=== PATIENT | female | born 1935 | race Caucasian/White ===

== ENCOUNTER → 2016-09-13 | Outpatient (CLI) | payer MEDICARE, OTHER ==
[~2016-09-13] MED LIST: ASPIRIN E.C. 8181 MG PO; CALCIUM600 MG PO; CEPHALEXIN500 M1 PO; CINNAMON; CRANBERRY1000 MG PO; FISH OIL1 IU PO; MIRTAZAPINE7.5 MG PO; MULTIPLE VITAMI1 CAP PO; MVI; NAMENDA5 MG PO; NEURONTIN100 MG/CAP PO; PERCOCET 5/321 UDTAB PO; PRILOSEC 20MG20 MG PO; TEGRETOL 1100 MG/TAB PO; TRILEPTAL 300M300 MG PO; TRILEPTAL600 MG PO; VITAMIN B121000 MC2 SL; WELLBUTRIN PO; WELLBUTRIN XL300 M1 PO; ZOCOR; ZOCOR 40MG40 MG PO
== END ==
LOC: MC.RAD 10:18
DX: Z12.31 Encounter for screening mammogram for malignant neoplasm of breast (principal); Z80.3 Family history of malignant neoplasm of breast

== ENCOUNTER → 2017-09-19 | Outpatient (CLI) | payer MEDICARE, OTHER | LOC: MC.RAD 09:55 | DX: Z12.31 Encounter for screening mammogram for malignant neoplasm of breast (principal) ==

== ENCOUNTER → 2018-09-23 | Outpatient (CLI) | payer MEDICARE, OTHER | LOC: MC.RAD 17:00 | DX: Z12.31 Encounter for screening mammogram for malignant neoplasm of breast (principal) ==

== ENCOUNTER → 2020-05-26 | Outpatient (CLI) | payer MEDICARE, OTHER | LOC: MC.RAD 14:45 | DX: Z12.31 Encounter for screening mammogram for malignant neoplasm of breast (principal) ==

== ENCOUNTER → 2021-03-01 | Outpatient (CLI) | payer MEDICARE, OTHER | LOC: COL.RAD 12:02 | DX: G31.9 Degenerative disease of nervous system, unspecified (principal); I67.82 Cerebral ischemia; G30.9 Alzheimer's disease, unspecified | CPT/HCPCS: A9585 ==

== ENCOUNTER 2023-08-31 18:42 | Inpatient (IN) | payer MEDICARE, OTHER ==
[~2023-08-31] VITALS: Ht 157.5 cm; Wt 58.6 kg
[2023-08-31] MEDS ORDERED: fentaNYL 50 MCG/ML 2 ML VIAL IV ONE (20:00)
[2023-08-31 20:29] LABS: COLLECTION METHOD CATHETER
[2023-08-31] MEDS ORDERED: D5 1/2 NS 1,000 ML IV SCH (20:30)
[2023-08-31] MEDS ORDERED: Naloxone 0.4 MG/ML VIAL IV PRN (20:30)
[2023-08-31] MEDS ORDERED: oxyCODONE 5 MG TAB PO PRN (20:30)
[2023-08-31] MEDS ORDERED: Morphine 4 MG/ML VIAL IV PRN (20:30)
[2023-08-31 20:35] LABS: PH 6.5 (5.0-8.5); URINE APPEARANCE CLEAR (CLEAR/HAZY); URINE BLOOD NEGATIVE (NEGATIVE); URINE COLOR YELLOW (YELLOW); URINE GLUCOSE NEGATIVE (NEGATIVE); URINE KETONE NEGATIVE (NEGATIVE); URINE NITRATE NEGATIVE (NEGATIVE); URINE PROTEIN(semi-quant) NEGATIVE (NEGATIVE); URINE UROBILINOGEN 0.2 E.U/dL (0.2-1.0)
[2023-08-31 20:38] LABS: INR 1.1 (0.8-3.0); PROTHROMBIN TIME 12.3 SECONDS (9.7-12.8)
[2023-08-31 20:51] LABS: BASO % 0.3 % (0.0-2.0); EOS # 0.2 K/mm3 (0.0-0.7); EOS % 1.9 % (0.0-4.0); GRAN # 6.8 K/mm3 (1.4-6.5); GRAN % 77.6 % (42.2-75.2); HEMATOCRIT 37.5 % (37.0-47.0); HEMOGLOBIN 12.5 g/dl (12.5-16.0); LYMPH # 1.3 K/mm3 (1.2-3.4); LYMPH % 14.8 % (20.0-51.0); MEAN CELL VOLUME 90 fl (80.0-100.0); MEAN CORPUSCULAR HEMOGLOBIN 30 pg (27-31); MEAN CORPUSCULAR HGB CONC 33 g/dl (33.0-37.0); MEAN PLATELET VOLUME 9.7 fl (7.4-10.4); MONO # 0.5 K/mm3 (0.1-0.6); MONO % 5.1 % (1.7-9.3); PLATELET COUNT 217 K/mm3 (130-400); RED BLOOD COUNT 4.17 M/mm3 (4.10-5.30); REDCELL DISTRIBUTION WIDTH-CV 13.5 % (11.5-14.5)
[2023-08-31 20:53] LABS: ALBUMIN 3.8 gm/dL (3.4-4.8); BILIRUBIN,TOTAL 0.7 mg/dL (0.2-1.2); CALCIUM 9.4 mg/dL (8.4-10.2); CREATININE, serum 1.03 mg/dL (0.57-1.11); POTASSIUM 3.8 mmol/L (3.5-4.5)
--- NOTE | 2023-08-31 21:00 | NUR ---
REPORT RECIEVED FROM [facility] NURSE AT THIS TIME.
[2023-08-31] MEDS ORDERED: Acetaminophen 500 MG TAB PO SCH (21:25)
--- NOTE | 2023-08-31 21:50 | NUR ---
FEMALE PATIENT ARRIVED TO ROOM #345 VIA STRETCHER FROM ER. PATIENT ASSISTED TO BED WITH ROLLBOARD. PATIENT TOLERATED WELL. MARI CATH INTACT, PATENT, AND DRAINING CLEAR YELLOW URINE. INT TO RIGHT AC INTACT WITH NO COMPLICATIONS NOTED. PATIENT CARE ASSUMED FROM [facility] NURSE. PATIENT AND FAMILY VERBALIZED UNDERSTANDING OF CALL LIGHT AND BED CONTROLS. PATIENT C/O PAIN IN RIGHT HIP AT A 10/10 ON SCALE OF 0 TO 10. IV MEDICATION GIVEN PER MD ORDERS. PATIENT DENIES ANY OTHER NEEDS AT THIS TIME. BED IN LOW POSITION WITH WHEELS LOCKED WITH RAILS UP X3 AND CALL LIGHT WITHIN REACH. BED ALARM ON.
[2023-08-31 22:00] VITALS: BP_SYST 134
[2023-08-31 22:01] VITALS: BP 134/74; PULSE 76; TEMP 98.8
[2023-09-01] VITALS (22 sets, daily range): BP systolic 95–150; BP diastolic 51–75; PULSE 64–81; TEMP 97.3–98.2
[2023-09-01 06:13] LABS: BASO # 0.1 K/mm3 (0.0-0.2); BASO % 0.8 % (0.0-2.0); EOS # 0.3 K/mm3 (0.0-0.7); EOS % 4.3 % (0.0-4.0); GRAN # 4.7 K/mm3 (1.4-6.5); GRAN % 75.1 % (42.2-75.2); HEMOGLOBIN 11.4 g/dl (12.5-16.0); LYMPH # 0.9 K/mm3 (1.2-3.4); LYMPH % 14.4 % (20.0-51.0); MEAN CELL VOLUME 89 fl (80.0-100.0); MEAN CORPUSCULAR HEMOGLOBIN 29 pg (27-31); MEAN CORPUSCULAR HGB CONC 33 g/dl (33.0-37.0); MEAN PLATELET VOLUME 9.4 fl (7.4-10.4); MONO # 0.3 K/mm3 (0.1-0.6); MONO % 5.1 % (1.7-9.3); PLATELET COUNT 202 K/mm3 (130-400); RED BLOOD COUNT 3.89 M/mm3 (4.10-5.30); REDCELL DISTRIBUTION WIDTH-CV 13.8 % (11.5-14.5)
[2023-09-01 06:18] LABS: CALCIUM 8.3 mg/dL (8.4-10.2); POTASSIUM 4.1 mmol/L (3.5-4.5)
[2023-09-01 06:19] LABS: HEMATOCRIT 34.5 % (37.0-47.0)
[2023-09-01] MEDS ORDERED: Lidocaine PF 2% (20 MG/ML) 5 ML VIAL ONE (08:29)
[2023-09-01] MEDS ORDERED: dexAMETHasone 10 MG/ML VIAL ONE (08:29)
[2023-09-01] MEDS ORDERED: Ondansetron 4 MG/2 ML VIAL ONE (08:29)
[2023-09-01] MEDS ORDERED: NS 10 ML IV ONE (08:29)
[2023-09-01] MEDS ORDERED: hydrALAZINE 20 MG/ML 1 ML VIAL IV PRN (08:30)
[2023-09-01] MEDS ORDERED: HYDROmorphone 2 MG/1 ML VIAL IV PRN (08:30)
[2023-09-01] MEDS ORDERED: Ondansetron 4 MG/2 ML VIAL IV PRN ×2 (08:30→10:45)
[2023-09-01] MEDS ORDERED: fentaNYL 50 MCG/ML 2 ML VIAL IV PRN ×2 (08:30)
[2023-09-01] MEDS ORDERED: LR 1,000 ML IV SCH (08:30)
[2023-09-01] MEDS ORDERED: fentaNYL 50 MCG/ML 2 ML VIAL ONE (08:31)
--- NOTE | 2023-09-01 08:49 | NUR ---
PT RESTING IN BED FAMILY AT BEDSIDE. PT IS A/O X3 WITH INTERMITTANT CONFUSION/FORGETFULLNES. LESTER LILLY PA IN TO SEE PT THIS AM. DR RODRIGUEZ PLANNING ON TAKING PATIENT TO SURGERY TO REPAIR BROKEN RIGHT HIP. CONSENT SIGNED BY SON. IV TO PUMP, MARI TO DD WITH CLEAR YELLOW URINE. PLAN ON SURGERY LATER THIS AM.
--- NOTE | 2023-09-01 09:26 | NUR ---
RELAYED MESSAGE FROM [facility] THAT PT HAS ANTIBODIES AND THEY MAY NOT HAVE BLOOD READY FOR SURGERY. DR RODRIGUEZ ACKNOWLEDGED MESSAGE VERBALLY.
--- NOTE | 2023-09-01 09:26 | NUR ---
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 DR RODRIGUEZ IN TO SPEAK WITH FAMILY AND PT. CONSENT ON CHART.
[2023-09-01] MEDS ORDERED: ePHEDrine 50 MG/ML VIAL ONE (10:03)
--- NOTE | 2023-09-01 10:05 | NUR ---
Communications Professor met with patient and family at bedside to discuss discharge planning. Patient being prepared to go to surgery for hip fracture repair. Daughter and son at bedside. Patient lives in [place] alone, is independent with activities and able to care for herself per her report. Daughter and son provided information that [facility] has [facility] coming [facility] a day for 1 hour each time to check on patient and provide assistance as needed. They also have cameras installed to check on patient due to patient's dementia. Patient verified that her son Santy ([phone]) is her DPOA and Monica is her daughter from [place] ([phone]). No DPOA on file, encouraged Santy to provide a copy to hospital. Patient sees Dr. Ruiz as her PCP and uses [facility]. Patient states she only uses a cane. Discharge plan pending therapy evaluations, family open to SNF if indicated. Discharge Plan: pending surgery and therapy evaluations
[2023-09-01] MEDS ORDERED: Topical Skin Adhesive 1 EACH (1 ML) TOP ONE (10:25)
[2023-09-01] MEDS ORDERED: Magnes Hydrox (MOM) 80 MG/ML 30 ML CUP PO PRN (10:45)
[2023-09-01] MEDS ORDERED: traMADol 50 MG TAB PO PRN (10:45)
--- NOTE | 2023-09-01 11:21 | NUR ---
PT TO ROOM 345 PER BED @1055 WITH REPORT FROM JAZMIN SZYMANSKI PACU. PT IS A/O X4, LUNGS CTA, BOWEL SOUNDS HYPO, DRESSING TO RIGHT HIP CDI WITH GAUZE AND TEGADERM. SCDS AND TEDS BILATERALLY. VSS. WATER AND GENERAL DIET PER ORDERS.
--- NOTE | 2023-09-01 20:22 | NUR ---
Patient assessed at this time, see shift assessment, alert and confused and very forgetful, orientated patient at this time, dressing to right hip CDI, denies pain or discomfort, IV to right AC bleeding and leaking, restarted IV to left wrist, IV infusing well LR running via gravity, shah catheter to DD which patient keeps forgetting that she has catheter, this nurse explained the reason why she has catheter, still on bedrest as per order, denies further needs, will closely monitor.
[2023-09-01] MEDS ORDERED: ceFAZolin 1 G in Water For Injection,Sterile 10 ML IV SCH (20:30)
[2023-09-01] MEDS ORDERED: Melatonin 3 MG TAB PO PRN (21:00)
[2023-09-01] MEDS ORDERED: Sennosides/Docusate 8.6-50 MG TAB PO SCH (21:00)
--- NOTE | 2023-09-01 21:00 | NUR ---
PATIENT SET OFF BED ALARM SEVERAL TIMES SINCE SHIFT CHANGE, PATIENT AT EDGE OF BED THIS TIME STATING SHE IS "NOT GOING TO STAY IN THIS DUNGEON". NURSING STAFF TRIED TO REORIENT PATIENT BUT SHE KEEPS ASKING THE SAME QUESTIONS OVER AND OVER LIKE, WHO IS MY DOCTOR, WHAT HAPPENED, WHERE AM I AT. PATIENT HAS HX OF DEMENTIA AND IS CURRENTLY VERY AGGITATED AND WANTS TO LEAVE. PATIENT ALREADY PULLED HER IV SITE OUT RIGHT AFTER SHIFT CHANGE AND NEARLY PULLED OUT NEW SITE. PATIENT PULLING ON MARI. WHEN STAFF TRY TO HELP HER BACK INTO BED SHE BECAME VERY COMBATIVE, HITTING/KICKING/BITING STAFF. PCT WENT TO GET MITTS FOR BUE AND RN WAS CALLING FOR ORDER WHEN PATIENT STARTED TO CALM DOWN. PATIENT ALLOWED STAFF TO HELP HER BACK INTO BED. PATIENT SAID, "I DON'T KNOW IF YOU ALL KNOW, I AM SENILE". NURSING ASSURED PATIENT THAT WE HAVE HAD SEVERAL PATIENT'S LIKE THAT BEFORE AND SHE WOULD BE SAFE HERE IN THE HOSPITAL TONIGHT. PATIENT CALMED DOWN AND AGREED TO NO PULL ANY OF HER LINES OUT. CALL LIGHT IN REACH. BED ALARM ON. ROOM DOOR CRACKED.
--- NOTE | 2023-09-01 21:45 | NUR ---
PATIENT SET OFF BED ALARM AGAIN AND WAS ALREADY IN A STANDING POSITION WHEN NURSING STAFF WENT RUNNING IN. PATIENT VERY CONFUSED BUT PLEASANTLY CONFUSED. PATIENT REPORTS FEELING THE URGE TO HAVE A BM. PATIENT ASSISTED TO COMMODE SHE WAS ALREADY STANDING, PASSED LOTS OF GAS, NO BM. PATIENT REPORTS HER TUMMY FEELS BETTER. PATIENT IS C/O PAIN IN HER RLE. GAVE PRN ROXICODONE AND PRN MELATONINE TO HELP HER SLEEP. PATIENT REPOSITIONED TO COMFORT UP IN BED. CALL LIGHT IN REACH. BED ALARM ON. DOOR OPEN.
[2023-09-01] MEDS ORDERED: LORazepam 2 MG/ML 1 ML VIAL IV ONE (23:00)
--- NOTE | 2023-09-01 23:06 | NUR ---
Charge nurse called Marina and made her aware that patient is getting agitated, biting staff and trying to hit, received an order for ativan and can be INT at this time.
[2023-09-02] VITALS (13 sets, daily range): BP systolic 114–143; BP diastolic 58–90; PULSE 60–73; TEMP 96.5–98.7
[2023-09-02] MEDS ORDERED: LORazepam 2 MG/ML 1 ML VIAL IV ONE ×2 (00:30→03:30)
--- NOTE | 2023-09-02 01:25 | NUR ---
PATIENT SET OFF BED ALARM AND UPON NURSE & PCT ENTERING THE ROOM PATIENT WAS FALLING FROM EDGE OF BED AND SLIPPED ONTO HER BOTTOM. PATIENT DID NOT HIT HER HEAD OR APPEAR TO HAVE ANY INJURY. BEDSIDE RN OBTAINED VITALS. CHARGE NURSE CALLED HOSPITALIST, SEE ORDERS. PATIENT IS NOW A 1:1 WITH A SITTER. CHARGE ALSO NOTIFIED CLOUD ARCHITECT. SEE BEDSIDE RN CHARTING.
[2023-09-02] MEDS ORDERED: QUEtiapine 25 MG TAB PO ONE (04:00)
[2023-09-02 05:51] LABS: HEMOGLOBIN 11.6 g/dl (12.5-16.0)
[2023-09-02 05:55] LABS: HEMATOCRIT 34.7 % (37.0-47.0)
--- NOTE | 2023-09-02 07:00 | NUR ---
Report received from NESSA Yates as well as sitter at bedside. Pt is currently sleeping at this time. Has received several medications overnight due to agitation. Per report pt is very aggressive and will attempt to bite and kick staff. This RN is in room with pt as a 1:1. IV to LW is saline locked and wrapped up in nessa bandage. Dressing to right hip is CDI. Rodríguez in place with clear, yellow urine. Pt currently on 2L NC. Bed alarm activated. Will continue with POC.
--- NOTE | 2023-09-02 08:46 | NUR ---
PT in room to help get pt up and moving. Pt was difficult to work with. Pt still threatening to hit or kick Rene from PT. Pt was able to stand with 2 assist and walker at side of bed for a short time. Pt oriented to self, knows her birthday but thinks she is at home. Pt repositioned in bed after PT and given warm blanket. Pt quickly drifting off to sleep again. Bed alarm turned back on and this RN will remain at bedside.
[2023-09-02] MEDS ORDERED: Ascorbic Acid 500 MG TAB PO SCH (09:00)
[2023-09-02] MEDS ORDERED: Calcium Carbonate 500 MG TAB PO SCH (09:00)
[2023-09-02] MEDS ORDERED: Multivitamin TAB PO SCH (12:00)
--- NOTE | 2023-09-02 13:12 | NUR ---
Pt becoming more alert. Pt remains very confused and continues to state she needs to go to her daughters house, easily redirectable at this time. Pt daughter had to leave for the day. Pt son visited for a while but states he will be back this evening. Pt up to chair with 2 person assist and walker. Pt has not been combative today.
--- NOTE | 2023-09-02 14:06 | NUR ---
ash worker met with pt and daughter, Monica [phone] at bedside. SW provided Medicare.gov list of SNF agencies in the area. Monica reports her and her brother are very involved; have cameras in the home, and carton filling machine operator care with [facility]. Monica was agreeable to SNF. She chose [facility] as first choice, [facility], and [facility]. AGUSTÍN stated she will send these and keep them updated. AGUSTÍN called [facility] and discussed the reccomendation. AGUSTÍN went over the Medicare.gov list verbally. He was agreeable with the above choices to keep pt in [place]. AGUSTÍN faxed referrals to [facility]. [facility] reports [facility] are full. [facility] both accept. AGUSTÍN called [facility]- and he chose [facility]. AGUSTÍN called Jaden at [facility] and informed her of this and a potential discharge for tomorrow. Discharge Plan: [facility]
--- NOTE | 2023-09-02 15:30 | NUR ---
report recieved from NESSA Pavon. sitter in with pt. pt denies pain. assisted pt to recliner.
[2023-09-02] MEDS ORDERED: Divalproex 125 MG Delayed Release Sprinkles CAP PO ONE (18:00)
--- NOTE | 2023-09-02 22:10 | NUR ---
PATIENT PLEASANTLY CONFUSED BUT STILL VERY CONFUSED AND FREQUENTLY REQUIRES REDIRECTION OR REORIENTATION. PCT SITTER AT BEDSIDE. PATIENT HAS ATTEMPTED TO GET OUT OF BED TWICE BUT PCT WAS ABLE TO TALK HER INTO STAYING IN BED FOR SAFETY. PATIENT ALSO HAS REDIRECTED/EDUCATED ABOUT HE MARI SHE KEEPS MESSING WITH IT. PATIENT IS WIDE AWAKE AND DIDN'T SLEEP AT ALL THE NIGHT BEFORE
[2023-09-03] VITALS (7 sets, daily range): BP systolic 120–141; BP diastolic 72–84; PULSE 58–63; TEMP 97.8–98.1
[2023-09-03] MEDS ORDERED: TYLENOL 500MG500 MG PO (09:22)
[2023-09-03] MEDS ORDERED: ASPI325T6 PO (09:22)
[2023-09-03] MEDS ORDERED: DUO-KAPS1 CAP PO (09:23)
[2023-09-03] MEDS ORDERED: OSCAL 500 TAB500 MG PO (09:23)
[2023-09-03] MEDS ORDERED: VITAMIN C500 MG PO (09:23)
--- NOTE | 2023-09-03 09:52 | NUR ---
PT IS SITTING UP IN CHAIR, ALERT AND ORIENTED X1 TO SELF. PT HAS NO PAIN THIS MORNING AND HAS NOT TAKEN ANY PAIN MEDS. DRESSING IS CLEAN DRY IN TACT WITH SOME BRUISING UNDER THE DRESSING. PT IS VERY PLEASENT THIS MORNING. PT HAS GOTTEN UP TO THE BATHROOM AND VOIDED. ASSESSED. STUDENT GAVE MORNING MEDS. CALL LIGHT WITHIN REACH.
--- NOTE | 2023-09-03 10:27 | NUR ---
Initial visit; Patient thanked Ear Pull Machine Operator for looking in on her and visiting. Aniya and Tanya had a good conversation and prayer together. Ear Pull Machine Operator thanked Aniya for the visit and enjoyed getting to know her better. Patient states it will just take time for her to recouperate. She and Ear Pull Machine Operator enjoyed prayer together. will follow up while Aniya is a patient here.
--- NOTE | 2023-09-03 12:19 | NUR ---
AGUSTÍN faxed discharge orders to [facility] for transition today. SPoke with patient's son Santy who is in agreement with discharge and gave verbal consent for IMM form to be signed. Jaden with [facility] returned call and stated transport time is set for 1330 today. Nurse notified.
--- NOTE | 2023-09-03 13:32 | NUR ---
PT HAS DISCHARGE ORDERS TO [facility]. TOOK OUT PT IV. ASSESSISED PT TO BATHROOM. CHANGED PT DRESSING ON HIP USING JUVENCIO AND TEGADERM. THIS NURSE CALL REPORT TO [facility] NURSE. WAITING ON TRANSPORT TO [facility].
--- NOTE | 2023-09-03 14:24 | NUR ---
PT GOT PICKED UP BY [facility] AT [id number].
--- NOTE | 2023-09-04 10:34 | NUR ---
Daughter in-law called data warehouse consultant with concerns about discharge/ communication. I called [facility] and clarified they got all discharge orders and information. I then called pt. family back and answered questions and addressed concerns. Family had no other issues or concerns at this time.
== END 2023-09-03 14:26 | DRG 482 ==
LOC: COL.ER 18:42 → SURG 20:31
PROVIDERS: Nurse Practitioner Family; Nurse Practitioner Primary Care; Orthopaedic Surgery; ADMIT Internal Medicine
PROC: 0QSB36Z Reposition Right Lower Femur with Intramedullary Internal Fixation Device, Percutaneous Approach (ICD-10-PCS; principal; 2023-08-31)
DX: S72.001A Fracture of unspecified part of neck of right femur, initial encounter for closed fracture (principal); G31.84 Mild cognitive impairment of uncertain or unknown etiology
CPT/HCPCS: A4314; A9284; C1713; J0690; J1100; J2060; J2270; J2405; J2704; J2795; J3010